=== PATIENT | male | born 1950 | race Caucasian/White ===

== ENCOUNTER → 2016-05-11 | Outpatient (CLI) | payer MEDICARE, OTHER ==
[~2016-05-11] MED LIST: /AUGM875TA OR; ACET65TA OR; PERC5TAB8 OR; ZANT150T PO
--- NOTE | 2016-05-11 09:51 | REP ---
Clinical: Pain. Technique: Internal rotation, external rotation, and Y view. Findings: Age-related cortical irregularity is appreciated without osteophytosis, periarticular calcifications, or overt osteoarthritic degenerative changes. No acute fracture or dislocation. Surrounding soft tissues are unremarkable. 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 Signed by Nick Howard MD 05/11/2016 09:42 A
== END ==
LOC: M WUC 08:36
PROVIDERS: ATTEND Nurse Practitioner Family
DX: M25.511 Pain in right shoulder (principal)

== ENCOUNTER 2017-03-01 07:35 | Day surgery (SDC) | payer MEDICARE, OTHER ==
[~2017-03-01] VITALS: Ht 180.3 cm; Wt 78.9 kg
[~2017-03-01 07:35] MED LIST changes: +LEVI20TA39 PO; +RANI150T PO; +SERT-155 PO; +SIMV20TA2 PO
[2017-03-01] MEDS ORDERED: NS 1,000 ML IV SCH (07:45)
[2017-03-01] MEDS ORDERED: PROPOFOL 200 MG/20 ML VIAL As Ordered ONE (08:37)
[2017-03-01] MEDS ORDERED: LIDOCAINE 2% INJ 100 MG/5 ML SDV (FOR ANES.) As Ordered ONE (08:38)
--- NOTE | 2017-03-01 09:03 | ROOR ---
Patient Name: Jigar Dsouza Procedure Date: 03/01/2017 8:48 AM Date of : 1950 Age: 66 Room: [facility] Gender: Male Note Status: Finalized Procedure: Total Colonoscopy to Cecum Indications: Screening for colorectal malignant neoplasm Providers: Theodore Barraza MD Referring MD: Aj Biggs MD Requesting Provider: Medicines: Monitored Anesthesia Care Complications: No immediate complications. Procedure: Pre-Anesthesia Assessment: - The heart rate, respiratory rate, oxygen saturations, blood pressure, adequacy of pulmonary ventilation, and response to care were monitored throughout the procedure. The Colonoscope was introduced through the anus and advanced to the cecum, identified by appendiceal orifice and ileocecal valve. The colonoscopy was performed without difficulty. The patient tolerated the procedure well. The quality of the bowel preparation was excellent. Findings: The perianal and digital rectal examinations were normal. Non-bleeding internal hemorrhoids were found during retroflexion. The hemorrhoids were small and Grade I (internal hemorrhoids that do not prolapse). No other significant abnormalities were identified in a careful examination of the remainder of the colon. The exam was otherwise without abnormality on direct and retroflexion views. Impression: - Non-bleeding internal hemorrhoids. - The examination was otherwise normal on direct and retroflexion views. - No specimens collected. Recommendation: - Patient has a contact number available for emergencies. The signs and symptoms of potential delayed complications were discussed with the patient. Return to normal activities tomorrow. Written discharge instructions were provided to the patient. - Discharge patient to home. - Continue present medications. - Repeat colonoscopy in 10 years for screening purposes. - Return to referring physician. - The findings and recommendations were discussed with the patient's family. Theodore Barraza MD Theodore Barraza MD 03/01/2017 9:02:34 AM This report has been signed electronically. Number of Addenda: 0 Note Initiated On: 03/01/2017 8:48 AM Estimated Blood Loss: Estimated blood loss: none.
[2017-03-01 09:25] VITALS: BP 127/65
== END 2017-03-01 09:30 | disposition home or self-care (01) ==
LOC: M OPP 07:35
PROVIDERS: ATTEND Internal Medicine Gastroenterology
DX: Z12.11 Encounter for screening for malignant neoplasm of colon (principal); K64.0 First degree hemorrhoids; E78.5 Hyperlipidemia, unspecified; K21.9 Gastro-esophageal reflux disease without esophagitis; F41.9 Anxiety disorder, unspecified; Z86.19 Personal history of other infectious and parasitic diseases; Z79.899 Other long term (current) drug therapy

== ENCOUNTER 2018-06-13 09:43 | Emergency (ER) | payer MEDICARE, OTHER ==
[~2018-06-13] VITALS: Ht 180.3 cm; Wt 84.1 kg
[2018-06-13] MEDS ORDERED: TADA20TA (09:54)
--- NOTE | 2018-06-13 10:54 | REP ---
CT Head without contrast HISTORY: Trauma COMPARISON: None There is no intraparenchymal hemorrhage, acute infarct, mass or midline shift. The ventricular system i and cortical sulci are dilated consistent with minimal volume loss. A small amount of subdural hemorrhage is present along the right tentorium. A small amount of subarachnoid hemorrhage is present over the right temporal lobe. . There is no fracture. The visualized sinuses are clear. Soft tissue swelling is present overlying the parietal bones at the vertex. A small air-fluid level is present in the left maxillary sinus. IMPRESSION: 1. There is a small amount of subdural hemorrhage along the right tentorium. 2. There is a small amount of subarachnoid hemorrhage. 3. Minimal volume loss. Results were discussed with Dr. Veras at 10:45 a.m. 06/13/2018 Electronically Signed by Contreras Kingsley MD 06/13/2018 10:46 A
--- NOTE | 2018-06-13 10:56 | REP ---
CT cervical spine without contrast HISTORY: Trauma COMPARISON: None There is no acute fracture or subluxation. A disc bulge is present at the C4-5 level. Disc bulges with associated osteophyte formation are present at the C5-6 and C6-7 levels. There is minimal narrowing of the spinal canal. Uncinate process and/or facet hypertrophy are present at the C3-4 through C6-7 levels. These findings produce minimal to moderate narrowing of the neural foramina. The C5-6 and C6-7 intervertebral discs are decreased in height consistent with disc degeneration. IMPRESSION: 1. There is no acute fracture or subluxation. 2. There is cervical spondylosis at the C3-4 through C6-7 levels. Electronically Signed by Contreras Kingsley MD 06/13/2018 10:48 A
[2018-06-13 11:32] LABS: BASO % 0.3 % (0.0-1.0); EOS % 0.2 % (0.0-3.0); HEMATOCRIT 45.4 % (42.0-52.0); HEMOGLOBIN 15.3 g/dl (13.5-17.5); LYMPH # 0.6 10^3/uL (1.5-4.5); MEAN CORPUSCULAR HEMOGLOBIN 29.8 pg (27.0-33.0); MEAN CORPUSCULAR HGB CONC 33.7 g/dl (32.0-36.5); MEAN CORPUSCULAR VOLUME 88.3 fl (80.0-96.0); MONO # 0.7 10^3/uL (0.0-0.8); MONO % 5.5 % (0.0-5.0); NEUTROPHILS % 88.4 % (36.0-66.0); PLATELET COUNT, AUTOMATED 168 10^3/uL (150-450); RED BLOOD COUNT 5.14 10^6/uL (4.30-6.10); WHITE BLOOD COUNT 12.4 10^3/uL (4.0-10.0)
[2018-06-13 11:44] LABS: INR 1.05; PROTHROMBIN TIME 13.9 SECONDS (12.1-14.4)
[2018-06-13 11:48] VITALS: BP 143/74
[2018-06-13 12:18] LABS: ALT/SGPT 31 U/L (12-78); BILIRUBIN,TOTAL 1.5 MG/DL (0.2-1.0); BLOOD UREA NITROGEN 15 MG/DL (7-18); CALCIUM LEVEL 8.7 MG/DL (8.8-10.2); CARBON DIOXIDE LEVEL 28 MEQ/L (21-32); CHLORIDE LEVEL 107 MEQ/L (98-107); CREATININE FOR GFR 0.96 MG/DL (0.70-1.30); GLOMERULAR FILTRATION RATE > 60.0 (>49); GLUCOSE, FASTING 116 MG/DL (70-100); POTASSIUM SERUM 4.1 MEQ/L (3.5-5.1); SODIUM LEVEL 140 MEQ/L (136-145)
== END 2018-06-13 11:56 | disposition short-term general hospital (02) ==
LOC: M ED 09:43
DX: S06.5X9A Traumatic subdural hemorrhage with loss of consciousness of unspecified duration, initial encounter (principal); S06.6X9A Traumatic subarachnoid hemorrhage with loss of consciousness of unspecified duration, initial encounter; R11.10 Vomiting, unspecified; W00.0XXA Fall on same level due to ice and snow, initial encounter; Y92.59 Other trade areas as the place of occurrence of the external cause; E78.9 Disorder of lipoprotein metabolism, unspecified; F32.9 Major depressive disorder, single episode, unspecified; Z79.899 Other long term (current) drug therapy

== ENCOUNTER → 2018-06-27 | Outpatient (CLI) | payer MEDICARE, OTHER ==
[~2018-06-27] MED LIST changes: +TADA20TA
--- NOTE | 2018-06-27 09:32 | REP ---
CT brain without contrast: History: Injury in a fall. Traumatic subarachnoid hemorrhage. Comparison CT study June 13, 2018. CT findings: There is minimal vascular calcification in the carotid siphons. Visualized paranasal sinuses are clear. No bony calvarial defect or fracture is seen. There is no evidence of extra-axial fluid collection today. The right tentorial leaf has decreased in its density compared to the June 13, 2018 study consistent with resolution of the previously noted small subarachnoid hemorrhage here. No new fluid collection or hemorrhage is seen. No parenchymal hemorrhage is noted. There is mild diffuse cerebral atrophy as before. No infarct or mass is seen. Impression: Minimal diffuse atrophy and vascular calcification. Otherwise unremarkable CT study of the brain. Electronically Signed by Romaine Gibson MD 06/27/2018 05:29 P
== END ==
LOC: M RAD 08:03
PROVIDERS: ATTEND Nurse Practitioner Family
DX: S06.6X0A Traumatic subarachnoid hemorrhage without loss of consciousness, initial encounter (principal); X58.XXXA Exposure to other specified factors, initial encounter; Y92.89 Other specified places as the place of occurrence of the external cause; G31.9 Degenerative disease of nervous system, unspecified

== ENCOUNTER → 2020-08-28 | Outpatient (CLI) | payer MEDICARE, OTHER ==
[~2020-08-28] MED LIST changes: -SERT-155 PO; +SERT50TA29 PO; -SIMV20TA2 PO; +SIMV20TA22 PO
--- NOTE | 2020-08-28 11:22 | REP ---
INDICATION: COUGH. COMPARISON: 10/01/2008 TECHNIQUE: PA and lateral FINDINGS: The superior mediastinal structures are midline. The cardiac silhouette is unremarkable in size, shape, and position. The diaphragmatic surfaces of the lungs are regular, and the costophrenic angles are clear. The pulmonary nelson are clear. The imaged osseous structures are intact. IMPRESSION: There is no acute cardiopulmonary disease. Or significant change compared to the prior exam. <Electronically signed by Patrick Drake > 08/28/20 [id number]
== END ==
LOC: M WUC 08:35
PROVIDERS: ATTEND Family Medicine
DX: R05 Cough (principal)

== ENCOUNTER → 2025-02-21 | Outpatient (CLI) | payer MEDICARE, OTHER | LOC: M WUC 11:06 | PROVIDERS: ATTEND Student in an Organized Health Care Education/Training Program | DX: M25.572 Pain in left ankle and joints of left foot (principal); M19.072 Primary osteoarthritis, left ankle and foot ==